=== PATIENT | male | born 1975 | race Caucasian/White ===

== ENCOUNTER 2016-05-09 12:13 | Emergency (ER) | payer SELFPAY ==
[~2016-05-09] VITALS: Ht 190.5 cm; Wt 90.0 kg
[2016-05-09 12:15] VITALS: BP 119/74; PULSE 102; RESP 15; TEMP 98; O2SAT 98
--- NOTE | 2016-05-09 14:12 | PD ---
HPI Chief Complaint: Pain: Acute or Chronic Time Seen by Provider: 14:05 Travel History International Travel<30 days: No Contact w/Intl Traveler<30days: No Traveled to known affect area: No History of Present Illness HPI 40-year-old male with a history of chronic low back pain presents to the emergency department for evaluation of right-sided lower back pain for 6 days. States that 6 days ago he bent to lift a 40 pound grill and has had pain in his right lower back since this occurred. States that the pain in his right lower back is aggravated with certain movements. Alleviated with lying still. He denies any fever, chills, nausea, vomiting, numbness or tingling, weakness, saddle anesthesia, bowel or bladder incontinence. He states that he had an L3- L4 discectomy about 5 years ago. He is concerned he may have another herniated disc. States he has been taking Tylenol and ibuprofen for his pain with minimal improvement of symptoms. He is requesting a shot of Toradol for pain. No other complaints. PFSH Past Medical History Anxiety: Yes Insomnia: Yes Kidney Stones: Yes Musculoskeletal: Yes (chronic back pain) Social History Alcohol Use: Yes ([facility]) Tobacco Use: Yes (5 cig.daily) Substance Use: No Allergies-Medications (Allergen,Severity, Reaction): Coded Allergies: Toradol (Verified Allergy, Mild, 05/09/16) PT STATES NOT ALLERGIC, SHANNON WRAY MADE AWARE Elavil (Verified Adverse Reaction, Severe, 05/09/16) Ultram (Verified Adverse Reaction, Unknown, 05/09/16) stomach ache Reported Meds & Prescriptions Reported Meds & Active Scripts Active Naproxen 500 Mg Tab 500 Mg PO BID 7 Days Flexeril (Cyclobenzaprine HCl) 10 Mg Tab 10 Mg PO TID 5 Days Review of Systems Except as stated in HPI: all other systems reviewed are Neg Physical Exam Narrative GENERAL: Well-nourished and well-developed pleasant male patient in no acute distress. SKIN: Warm and dry. HEAD: Normocephalic and atraumatic. EYES: No injection, drainage, or hyphema noted. PERRLA. EOMI. ENT: No nasal drainage noted. Oropharynx is clear. NECK: Supple and the trachea is midline. CARDIOVASCULAR: Regular rate and rhythm. RESPIRATORY: Breath sounds are equal bilaterally with no accessory muscle use, wheezing, rhonchi, or crackles. MUSCULOSKELETAL: No obvious deformities, swelling, cyanosis, or ecchymosis is present throughout the upper and lower extremities. Patient has full range of motion without any signs of neurovascular compromise. Right SLR positive. Strength 5/5 upper and lower extremities equal bilaterally. BACK: Mild tenderness to palpation over right lumbar paraspinal muscles. No obvious deformities, midline bony point tenderness, or crepitus noted throughout the thoracic and lumbar vertebrae. NEUROLOGICAL: Awake, alert, and oriented. Normal speech and gait. Ambulating without assistance. Cranial nerves are grossly intact. Data Data Last Documented VS Vital Signs Date Time Temp Pulse Resp B/P Pulse Ox O2 Delivery O2 Flow Rate FiO2 05/09/16 12:41 16 05/09/16 12:15 98.0 102 119/74 98 Orders Ketorolac Inj (Toradol Inj) (05/09/16 14:15) Acetamin-Hydrocod 325-5 Mg ([place] 5-325 (05/09/16 14:15) MDM Medical Decision Making Medical Screen Exam Complete: Yes Emergency Medical Condition: Yes Differential Diagnosis Acute on chronic back pain versus discogenic pain versus herniated disc versus sciatica Narrative Course 40-year-old male presents to the emergency department for evaluation of right- sided lower back pain after bending to orange picker a grill 6 days ago. Patient is afebrile, vital signs are stable. The patient has a history of chronic low back pain. No focal neurologic deficits or red flag signs or symptoms indicating the need for emergent imaging. I did look the patient up on he forced 4 to prescription drug monitoring program which shows that he receives a 30 day supply of Soma 350 mg and oxycodone 15 mg every month from a physician. I did confront the patient as he initially denied taking any medications other than tylenol or ibuprofen. He admits to taking these medications and states he ran out of his medication today. He is given Toradol 60 mg IM and Lortab 5325 mg. He is advised to follow-up with his PCP. Diagnosis Primary Impression: Acute exacerbation of chronic low back pain Referrals: Primary Care Physician Patient Instructions: Acute Low Back Pain (ED), General Instructions Additional Instructions: Apply ice or heat to help alleviate symptoms. Follow-up with your Primary Care Physician. Return to the ED for any acute worsening of symptoms. Med/Other Pt SpecificInfo: No Change to Meds Disposition: 01 DISCHARGE HOME Condition: Prema Hinojosa May 09, 2016 14:12 Disposition: 01 DISCHARGE HOME Condition: Prema Hinojosa May 09, 2016 14:12
[2016-05-09] MEDS ORDERED: ACETAMINOPHEN/HYDROcodone 325 MG/5 MG TAB PO ONE (14:15)
[2016-05-09] MEDS ORDERED: KETOROLAC TROMETHAMINE 60 MG/2 ML (IM) VIAL IM ONE (14:15)
[2016-05-09] MEDS ORDERED: CYCL1TAB29 PO (14:59)
[2016-05-09] MEDS ORDERED: NAPR500T PO (14:59)
[2016-10-07] MEDS ORDERED: TRAZ50TA12 PO (08:47)
== END 2016-05-09 15:35 | disposition home or self-care (01) ==
LOC: NEPB 12:13
DX: M54.5 Low back pain (principal); G89.29 Other chronic pain; F17.210 Nicotine dependence, cigarettes, uncomplicated; Z87.442 Personal history of urinary calculi; X50.0XXA Overexertion from strenuous movement or load, initial encounter; Y99.8 Other external cause status
CPT/HCPCS: 96372; 99283; J1885

== ENCOUNTER 2016-07-21 10:51 | Emergency (ER) | payer SELFPAY ==
[~2016-07-21] VITALS: Ht 190.5 cm; Wt 90.0 kg
[2016-07-21 10:52] VITALS: BP 137/87; PULSE 102; RESP 18; TEMP 98.7; O2SAT 100
--- NOTE | 2016-07-21 11:25 | PD ---
HPI Chief Complaint: Pain: Acute or Chronic Time Seen by Provider: 11:18 Travel History International Travel<30 days: No Contact w/Intl Traveler<30days: No Traveled to known affect area: No History of Present Illness HPI 40-year-old male presents to the emergency department requesting a refill on his oxycodone for chronic low back pain. He has had low back pain for approximately 3 years and has been taking oxycodone 3 times daily after having surgery approximately 3 years ago. He denies new or recent injury. His primary care provider, Dr. Will, is out of his office after having knee surgery and they provider in the office will not refill his prescription. He took his last pill yesterday. He is concerned of going through withdrawals and also needs something for his back pain. He denies encopresis, incontinence, saddle anesthesias. Denies fever, chills, nausea, vomiting. Denies paresthesias, loss of sensation, hematocrit decreased range of motion, decreased strength to bilateral lower extremities. Denies IV drug use. Denies cancer. Allergies to Elavil, Toradol, Ultram. Dr. Will's primary care provider. Has no other medical complaints. No other modifying factors or associated signs and symptoms. History Social History Alcohol Use: No Tobacco Use: Yes Allergies-Medications (Allergen,Severity, Reaction): Coded Allergies: Toradol (Verified Allergy, Mild, 07/21/16) PT STATES NOT ALLERGIC, SHANNON WRAY MADE AWARE Elavil (Verified Adverse Reaction, Severe, 07/21/16) Ultram (Verified Adverse Reaction, Unknown, 07/21/16) stomach ache Reported Meds & Prescriptions Reported Meds & Active Scripts Active No Active Prescriptions or Reported Medications Review of Systems Except as stated in HPI: all other systems reviewed are Neg Physical Exam Narrative GENERAL: Well-nourished, well-developed male patient, in no acute distress; afebrile, nontoxic-appearing SKIN: Warm and dry. HEAD: Atraumatic. Normocephalic. EYES: Pupils equal and round. No scleral icterus. No injection or drainage. ENT: Mucosa pink and moist. Airway patent. NECK: Trachea midline. CARDIOVASCULAR: Regular rate. RESPIRATORY: No accessory muscle use. GASTROINTESTINAL: Flat. MUSCULOSKELETAL: Bilateral lower extremities supple and non-tense with 2+ pedal pulses and sensory intact; with full range of motion and 5/5 strength. Active dorsiflexion and extension of bilateral feet. Bilateral straight leg raise is negative for low back pain. Ambulatory with normal gait. Sitting up in bed at 90. No obvious deformities. No clubbing. No cyanosis. No edema. BACK: No midline point tenderness on palpation of the lumbar spine. Tenderness on palpation of right paraspinal area. No obvious deformities. NEUROLOGICAL: Awake and alert. Oriented 3. No obvious cranial nerve deficits. Motor grossly within normal limits. Normal speech. Moves all extremities. 5/5 strength to all extremities. Sensory intact. PSYCHIATRIC: Appropriate mood and affect; insight and judgment normal. Data Data Last Documented VS Vital Signs Date Time Temp Pulse Resp B/P Pulse Ox O2 Delivery O2 Flow Rate FiO2 07/21/16 10:52 98.7 102 18 137/87 100 Room Air MDM Medical Screen Exam Complete: Yes Emergency Medical Condition: No Differential Diagnosis Medication refill, narcotic seeking, chronic low back pain, malingering Narrative Course 40-year-old male with chronic low back pain, requesting refill of medication on oxycodone 15 mg 3 times daily. History of surgery to the lumbar spine. Denies new or recent injury. Heart rate recheck during physical exam is approximately 90 bpm. His primary care provider, Dr. Will, is out of the office secondary to knee surgery and the current provider will not refill his prescriptions. The patient has no other medical complaints. He denies IV drug use. Denies cancer. Denies encopresis, incontinence, saddle anesthesias. I offered the patient a nonnarcotic and muscle relaxer and the patient declined. The patient was provided with information to detox center in the community. Vital signs are stable and the patient is stable for outpatient follow-up and treatment. The patient has no urgent or emergent medical complaints. There is no emergent or urgent medical need at this time. I instructed the patient to follow up with their primary care provider. A medical screening exam was performed: At the time of evaluation the presenting medical condition was determined not to be of an emergent nature. The patient was given the option of receiving additional care, but declined. Patient was given options for additional community resources from which to obtain care. The Patient Has Been advised to seek medical attention for their presenting complaint. The patient has been advised to return to the ER at any time if an emergent condition develops. Primary Impression: Encounter for medical screening examination Scripts No Active Prescriptions or Reported Meds Disposition: 01 DISCHARGE HOME Condition: Stable Prema Camacho Jul 21, 2016 11:25
[2016-10-07] MEDS ORDERED: TRAZ50TA12 PO (08:47)
== END 2016-07-21 12:15 | disposition left against medical advice (07) ==
LOC: NEPB 10:51
DX: M54.5 Low back pain (principal); Z72.0 Tobacco use; Z98.890 Other specified postprocedural states
CPT/HCPCS: 99281

== ENCOUNTER 2016-08-13 17:30 | Emergency (ER) | payer OTHER ==
[~2016-08-13] VITALS: Ht 190.5 cm; Wt 85.0 kg
[2016-08-13 17:34] VITALS: BP 126/84; PULSE 103; RESP 16; TEMP 98.2; O2SAT 96
[2016-08-13] MEDS ORDERED: SODIUM CHLOR 0.9% 1000 ML INJ 1,000 ML IV ONE (17:46)
[2016-08-13] MEDS ORDERED: SODIUM CHLORIDE 0.9% FLUSH 10 ML FLUSH IVF PRN (18:00)
[2016-08-13 18:09] LABS: BASOPHIL % 0.2 % (0.0-2.0); EOSINOPHIL % 0.4 % (0.0-4.0); HEMATOCRIT 42.6 % (39.0-51.0); HEMO FLAGS DIFF FINAL; LYMPH % 18.5 % (9.0-44.0); LYMPHOCYTE # 1.9 TH/MM3 (1.0-4.8); MEAN CORPUSCULAR HEMOGLOBIN 32.1 PG (27.0-34.0); MEAN CORPUSCULAR HGB CONC 33.1 % (32.0-36.0); MONO % 2.5 % (0.0-8.0); NEUT % 78.4 % (16.0-70.0); PLATELET COUNT 202 TH/MM3 (150-450); RED CELL DISTRIBUTION WIDTH 13.9 % (11.6-17.2); WHITE BLOOD COUNT 10.2 TH/MM3 (4.0-11.0)
[2016-08-13 18:18] LABS: APTT (PATIENT) 21.7 SEC (24.3-30.1); PROTHROMBIN TIME - PATIENT 11.1 SEC (9.8-11.6)
[2016-08-13 18:22] VITALS: RESP 18; O2SAT 98
--- NOTE | 2016-08-13 18:33 | RADRPT ---
EXAM DATE/TIME: 08/13/2016 18:20 [facility] COMPARISON: CHEST SINGLE AP, February 16, 2015, 16:49. INDICATIONS : Patient states syncope. MEDICAL HISTORY : None. SURGICAL HISTORY : None. ENCOUNTER: Initial ACUITY: 1 day PAIN SCORE: 0/10 LOCATION: Bilateral chest FINDINGS: A single view of the chest demonstrates the lungs to be symmetrically aerated without evidence of mas s, infiltrate or effusion. The cardiomediastinal contours are unremarkable. Osseous structures are intact. CONCLUSION: No acute disease. Sylvester Azul MD on August 13, 2016 at 18:31 Board Certified Radiologist. This report was verified electronically.
--- NOTE | 2016-08-13 18:48 | PD ---
HPI Chief Complaint: Alcohol/Drug Intoxication Time Seen by Provider: 17:46 Travel History International Travel<30 days: No Contact w/Intl Traveler<30days: No Traveled to known affect area: No History of Present Illness HPI 40 y/o male presents after getting 1 mg of Narcan and going from a GCS of 3 to 15. Patient will not tell me what he took but denies any complaints. He has history of overdose in the past. He was last seen normal at 2 PM. He presents by ambulance. History is significantly limited. PFSH Past Medical History Narrative Medical On review of records Anxiety: Yes Insomnia: Yes Kidney Stones: Yes Musculoskeletal: Yes (chronic back pain) Psychiatric: Yes (HX OF SUICIDE) Past Surgical History Narrative Surgical Patient denies but poor historian Social History Alcohol Use: No Tobacco Use: Yes (1/2 PACK per records) Substance Use: No (DENIES ANY USE, prior Xanax overdose in records) Allergies-Medications (Allergen,Severity, Reaction): Coded Allergies: Toradol (Verified Allergy, Mild, 07/21/16) PT STATES NOT ALLERGIC, SHANNON WRAY MADE AWARE Elavil (Verified Adverse Reaction, Severe, 07/21/16) Ultram (Verified Adverse Reaction, Unknown, 07/21/16) stomach ache Reported Meds & Prescriptions Reported Meds & Active Scripts Active No Active Prescriptions or Reported Medications Review of Systems ROS Limitations: Poor Historian Except as stated in HPI: all other systems reviewed are Neg Physical Exam Narrative GENERAL: Well-nourished, well-developed patient. SKIN: Warm and dry. HEAD: Normocephalic and atraumatic. EYES: No injection or drainage. Pupils pinpoint ENT: No nasal drainage noted. NECK: Supple, trachea midline. CARDIOVASCULAR: Regular rate and rhythm RESPIRATORY: No increased effort. No accessory muscle use. GASTROINTESTINAL: Abdomen soft, non-tender, nondistended. NEUROLOGICAL: Awake. Moves all extremities. Normal speech. Data Data Last Documented VS Vital Signs Date Time Temp Pulse Resp B/P Pulse Ox O2 Delivery O2 Flow Rate FiO2 08/13/16 18:22 18 98 08/13/16 17:40 102 Room Air 08/13/16 17:34 98.2 126/84 Orders Electrocardiogram (08/13/16 ) Complete Blood Count With Diff (08/13/16 17:46) Comprehensive Metabolic Panel (08/13/16 17:46) Prothrombin Time / Inr (Pt) (08/13/16 17:46) Act Partial Throm Time (Ptt) (08/13/16 17:46) Chest, Single Ap (08/13/16 17:46) Blood Glucose (08/13/16 17:46) Iv Access Insert/Monitor (08/13/16 17:46) Ecg Monitoring (08/13/16 17:46) Oximetry (08/13/16 17:46) Sodium Chloride 0.9% Flush (Ns Flush) (08/13/16 18:00) Sodium Chlor 0.9% 1000 Ml Inj (Ns 1000 M (08/13/16 17:46) Drug Screen, Random Urine (08/13/16 17:46) Alcohol (Ethanol) (08/13/16 17:46) Salicylates (Aspirin) (08/13/16 17:46) Tylenol (Acetaminophen) (08/13/16 17:46) Ct Brain W/O Iv Contrast(Rout) (08/13/16 ) Labs Laboratory Tests Test 08/13/16 17:55 White Blood Count 10.2 TH/MM3 Red Blood Count 4.40 MIL/MM3 Hemoglobin 14.1 GM/DL Hematocrit 42.6 % Mean Corpuscular Volume 97.0 FL Mean Corpuscular Hemoglobin 32.1 PG Mean Corpuscular Hemoglobin 33.1 % Concent Red Cell Distribution Width 13.9 % Platelet Count 202 TH/MM3 Mean Platelet Volume 9.9 FL Neutrophils (%) (Auto) 78.4 % Lymphocytes (%) (Auto) 18.5 % Monocytes (%) (Auto) 2.5 % Eosinophils (%) (Auto) 0.4 % Basophils (%) (Auto) 0.2 % Neutrophils # (Auto) 8.0 TH/MM3 Lymphocytes # (Auto) 1.9 TH/MM3 Monocytes # (Auto) 0.3 TH/MM3 Eosinophils # (Auto) 0.0 TH/MM3 Basophils # (Auto) 0.0 TH/MM3 CBC Comment DIFF FINAL Differential Comment Prothrombin Time 11.1 SEC Prothromb Time International 1.0 RATIO Ratio Activated Partial 21.7 SEC Thromboplast Time Salicylates Level LESS THAN 1.7 MG/DL MDM Medical Decision Making Medical Screen Exam Complete: Yes Emergency Medical Condition: Yes Medical Record Reviewed: Yes (past history confirm) Differential Diagnosis Overdose, congestion, renal failure, intracranial Narrative Course Will check blood work and he will need to be monitored in the hospital given significant initial GCS needing Narcan, chaim act placed Physician Communication Physician Communication dr pryor to reeval and admit Scripts No Active Prescriptions or Reported Meds Arely Vogel MD Aug 13, 2016 18:47
[2016-08-13 19:00] VITALS: BP 129/78; PULSE 101; RESP 18; O2SAT 96
--- NOTE | 2016-08-13 19:00 | PD ---
Physical Exam Date Seen by Provider: Aug 13, 2016 Time Seen by Provider: 18:59 Narrative The patient is a 40-year-old male was initially evaluated by the previous physician, Dr. Vogel. Please refer to the initial history, physical, diagnostic evaluation, and treatment modality plan. The patient signed out at [address] of the brain and laboratory evaluation pending. Data Data Last Documented VS Vital Signs Date Time Temp Pulse Resp B/P Pulse Ox O2 Delivery O2 Flow Rate FiO2 08/13/16 18:22 18 98 08/13/16 17:40 102 Room Air 08/13/16 17:34 98.2 126/84 Orders Electrocardiogram (08/13/16 ) Complete Blood Count With Diff (08/13/16 17:46) Comprehensive Metabolic Panel (08/13/16 17:46) Prothrombin Time / Inr (Pt) (08/13/16 17:46) Act Partial Throm Time (Ptt) (08/13/16 17:46) Chest, Single Ap (08/13/16 17:46) Blood Glucose (08/13/16 17:46) Iv Access Insert/Monitor (08/13/16 17:46) Ecg Monitoring (08/13/16 17:46) Oximetry (08/13/16 17:46) Sodium Chloride 0.9% Flush (Ns Flush) (08/13/16 18:00) Sodium Chlor 0.9% 1000 Ml Inj (Ns 1000 M (08/13/16 17:46) Drug Screen, Random Urine (08/13/16 17:46) Alcohol (Ethanol) (08/13/16 17:46) Salicylates (Aspirin) (08/13/16 17:46) Tylenol (Acetaminophen) (08/13/16 17:46) Ct Brain W/O Iv Contrast(Rout) (08/13/16 ) Ondansetron Inj (Zofran Inj) (08/13/16 20:45) Labs Laboratory Tests Test 08/13/16 08/13/16 17:55 18:57 White Blood Count 10.2 TH/MM3 Red Blood Count 4.40 MIL/MM3 Hemoglobin 14.1 GM/DL Hematocrit 42.6 % Mean Corpuscular Volume 97.0 FL Mean Corpuscular Hemoglobin 32.1 PG Mean Corpuscular Hemoglobin 33.1 % Concent Red Cell Distribution Width 13.9 % Platelet Count 202 TH/MM3 Mean Platelet Volume 9.9 FL Neutrophils (%) (Auto) 78.4 % Lymphocytes (%) (Auto) 18.5 % Monocytes (%) (Auto) 2.5 % Eosinophils (%) (Auto) 0.4 % Basophils (%) (Auto) 0.2 % Neutrophils # (Auto) 8.0 TH/MM3 Lymphocytes # (Auto) 1.9 TH/MM3 Monocytes # (Auto) 0.3 TH/MM3 Eosinophils # (Auto) 0.0 TH/MM3 Basophils # (Auto) 0.0 TH/MM3 CBC Comment DIFF FINAL Differential Comment Prothrombin Time 11.1 SEC Prothromb Time International 1.0 RATIO Ratio Activated Partial 21.7 SEC Thromboplast Time Salicylates Level LESS THAN 1.7 MG/DL Sodium Level 144 MEQ/L Potassium Level 3.9 MEQ/L Chloride Level 111 MEQ/L Carbon Dioxide Level 20.7 MEQ/L Anion Gap 12 MEQ/L Blood Urea Nitrogen 8 MG/DL Creatinine 1.23 MG/DL Estimat Glomerular Filtration 65 ML/MIN Rate Random Glucose 126 MG/DL Calcium Level 7.6 MG/DL Total Bilirubin 0.2 MG/DL Aspartate Amino Transf 25 U/L (AST/SGOT) Alanine Aminotransferase 33 U/L (ALT/SGPT) Alkaline Phosphatase 69 U/L Total Protein 6.8 GM/DL Albumin 3.6 GM/DL Urine Opiates Screen NEG Acetaminophen Level LESS THAN 2.0 MCG/ML Urine Barbiturates Screen NEG Urine Amphetamines Screen NEG Urine Benzodiazepines Screen NEG Urine Cocaine Screen POS Urine Cannabinoids Screen NEG Ethyl Alcohol Level 40 MG/DL [facility] Medical Record Reviewed: Yes Supervised Visit with LEAHTA: No Interpretation(s) Last Impressions Chest X-Ray 08/13/16 [id number] Signed Impressions: Service Date/Time: Saturday, August 13, 2016 18:20 - CONCLUSION: No acute disease. Sylvester Azul MD Laboratory Tests Test 08/13/16 08/13/16 17:55 18:57 White Blood Count 10.2 TH/MM3 Red Blood Count 4.40 MIL/MM3 Hemoglobin 14.1 GM/DL Hematocrit 42.6 % Mean Corpuscular Volume 97.0 FL Mean Corpuscular Hemoglobin 32.1 PG Mean Corpuscular Hemoglobin 33.1 % Concent Red Cell Distribution Width 13.9 % Platelet Count 202 TH/MM3 Mean Platelet Volume 9.9 FL Neutrophils (%) (Auto) 78.4 % Lymphocytes (%) (Auto) 18.5 % Monocytes (%) (Auto) 2.5 % Eosinophils (%) (Auto) 0.4 % Basophils (%) (Auto) 0.2 % Neutrophils # (Auto) 8.0 TH/MM3 Lymphocytes # (Auto) 1.9 TH/MM3 Monocytes # (Auto) 0.3 TH/MM3 Eosinophils # (Auto) 0.0 TH/MM3 Basophils # (Auto) 0.0 TH/MM3 CBC Comment DIFF FINAL Differential Comment Prothrombin Time 11.1 SEC Prothromb Time International 1.0 RATIO Ratio Activated Partial 21.7 SEC Thromboplast Time Salicylates Level LESS THAN 1.7 MG/DL Sodium Level 144 MEQ/L Potassium Level 3.9 MEQ/L Chloride Level 111 MEQ/L Carbon Dioxide Level 20.7 MEQ/L Anion Gap 12 MEQ/L Blood Urea Nitrogen 8 MG/DL Creatinine 1.23 MG/DL Estimat Glomerular Filtration 65 ML/MIN Rate Random Glucose 126 MG/DL Calcium Level 7.6 MG/DL Total Bilirubin 0.2 MG/DL Aspartate Amino Transf 25 U/L (AST/SGOT) Alanine Aminotransferase 33 U/L (ALT/SGPT) Alkaline Phosphatase 69 U/L Total Protein 6.8 GM/DL Albumin 3.6 GM/DL Urine Opiates Screen NEG Acetaminophen Level LESS THAN 2.0 MCG/ML Urine Barbiturates Screen NEG Urine Amphetamines Screen NEG Urine Benzodiazepines Screen NEG Urine Cocaine Screen POS Urine Cannabinoids Screen NEG Ethyl Alcohol Level 40 MG/DL Differential Diagnosis Differential diagnosis includes alcohol intoxication, substance ingestion, opiate overdose, suicidal ideation, medication overdose, depressive disorder NOS , mood disorder NOS. Narrative Course The patient was initially evaluated by the previous physician, please refer to the initial history, physical, diagnostic evaluation, and treatment modality plan. The patient was signed out at 7 PM laboratory evaluation and CT of the brain pending. The patient's initial GCS was apparently 3, the patient received Narcan and responded, is currently GCS of 15. However, according to previous physician, the patient will not give a good history of regard to events prior to arriving to the hospital. Alcohol level was 40, tox screen is positive for cocaine. CT the brain is negative. At 8 PM the patient was awake , alert, and able to drink water. The patient will be monitored until midnight , if remains GCS of 15, will be cleared to be evaluated by psychiatry as the previous physician placed the patient under a Rubin act. The patient was reevaluated several times, he was able to drink Gatorade without difficulty, had one episode of nausea which resolved after Zofran. Patient was reevaluated once again at 11:45 PM, he is awake, alert, and oriented 4. The patient states he took 2 oxycodone earlier today with 2 rum and cokes and think it was more than he can handle. The patient does have a history of oxycodone use in the past, but has not been on oxycodone for several years. He does have a history of previous intentional overdose on Xanax several years ago, but denies any current suicidal or homicidal ideation. He denies the ingestion of any medications in an attempt to harm himself. The patient was placed under Rubin act by the previous physician, is medically cleared to be evaluated by psychiatry. Psychiatry list Rubin act, the patient will be discharged home. Diagnosis Primary Impression: Ingestion of substance Qualified Code: T65.94XA - Ingestion of substance, undetermined intent, initial encounter Scripts No Active Prescriptions or Reported Meds Condition: Edinson Sadler MD Aug 13, 2016 19:00
[2016-08-13 19:19] LABS: AMPHETAMINE, URINE NEG (NEG); BARBITURATES, URINE NEG (NEG); COCAINE, URINE POS (NEG)
--- NOTE | 2016-08-13 20:03 | RADRPT ---
EXAM DATE/TIME: 08/13/2016 19:46 [facility] COMPARISON: CT BRAIN W/O CONTRAST, February 16, 2015, 16:20. INDICATIONS : Altered mental status. RADIATION DOSE: 38.81 CTDIvol (mGy) MEDICAL HISTORY : None SURGICAL HISTORY : None. ENCOUNTER: Initial ACUITY: 1 day PAIN SCALE: 0/10 LOCATION: cranial TECHNIQUE: Multiple contiguous axial images were obtained of the head. Using automated exposure control and adj ustment of the mA and/or kV according to patient size, radiation dose was kept as low as reasonably a chievable to obtain optimal diagnostic quality images. FINDINGS: CEREBRUM: The ventricles are normal for age. No evidence of midline shift, mass lesion, hemorrhage or acute in farction. No extra-axial fluid collections are seen. POSTERIOR FOSSA: The cerebellum and brainstem are intact. The 4th ventricle is midline. The cerebellopontine angle i s unremarkable. EXTRACRANIAL: The visualized portion of the orbits is intact. Scattered sinus disease. SKULL: The calvaria is intact. No evidence of skull fracture. CONCLUSION: No acute intracranial disease. Sylvester Azul MD on August 13, 2016 at 20:01 Board Certified Radiologist. This report was verified electronically.
[2016-08-13 20:04] LABS: ACETAMINOPHEN LESS THAN 2.0 MCG/ML (10.0-30.0); ALKALINE PHOSPHATASE 69 U/L (45-117); ALT (GPT) 33 U/L (12-78); ANION GAP 12 MEQ/L (5-15); AST (GOT) 25 U/L (15-37); BICARBONATE 20.7 MEQ/L (21.0-32.0); BLOOD UREA NITROGEN 8 MG/DL (7-18); CHLORIDE 111 MEQ/L (98-107); GLOMERULAR FILTRATION RATE 65 ML/MIN (>89); POTASSIUM 3.9 MEQ/L (3.5-5.1); SODIUM (NA) 144 MEQ/L (136-145); TOTAL BILIRUBIN ADULT 0.2 MG/DL (0.2-1.0)
[2016-08-13] MEDS ORDERED: ONDANSETRON HCL 4 MG/2 ML VIAL IV PUSH ONE (20:45)
[2016-08-13 23:00] VITALS: BP 120/72; PULSE 80; RESP 18; O2SAT 95
[2016-08-14] MEDS ORDERED: diphenhydrAMINE HCL 25 MG CAP PO ONE (00:30)
[2016-08-14 02:25] VITALS: BP 110/64; PULSE 70; RESP 18; O2SAT 97
[2016-08-14 06:41] VITALS: BP 127/72; PULSE 72; RESP 18; O2SAT 99
--- NOTE | 2016-08-14 08:38 | PD ---
History of Present Illness Chief Complaint: Alcohol/Drug Intoxication Time Seen by Provider: 08:30 Travel History International Travel<30 Days: No Contact w/Intl Traveler<30days: No Known affected area: No Legal Status Legal Status: Rubin Act Rubin Act Signed By: DR TENA History of Present Illness: History of Present Illness HPI 40 y/o male with no psychiatric history who presents after getting 1 mg of Narcan and going from a GCS of 3 to 15. He reports that he was with his father and had some drinks. Later on in the day he hurt his back and took # 2 tabs of oxycodone that he has prescribed for back pain but that he has not taken in some time. He denies that this was an intentional overdose. States " I didn't attempt suicide". Patient denies any previous psychiatric history and deneis any current psychiatric treatment. No previous attempts. EMR is reviewed. One previous Ed visit for suspected malingering to obtain narcotics. Current toxicology is positive for cocaine. Patient has been monitored in J pod. no behavioral concerns. this morning he is alert, oriented, engaging and calm. His speech is clear and logical. No psychosis and no malik. He denies any symptoms of depression or anxiety. Affect is appropriate and full range. Patient denies that this was an intentional overdose. he states that he is in school and graduates in 3 weeks and has no reason to not want to live. TC to father at [phone] for collateral information. he does not have any concerns regarding his son if he were to be discharged. He will pick him up from the hospital. [facility] Past Medical History Anxiety: Yes Insomnia: Yes Kidney Stones: Yes Musculoskeletal: Yes (chronic back pain) Psychiatric: Yes (HX OF SUICIDE) Psychiatric History Psychiatric History Hx Psychiatric Treatment: Deneis any History of Inpatient Treatment: No Guns or firearms in home: No Social History Single male. Lives with his father. Attends [employer] and will graduate in 3 weeks. Hx Alcohol Use: No Hx Tobacco Use: Yes (1/2 PACK per records) Hx Substance Use: No (DENIES ANY USE, prior Xanax overdose in records) Substance Use Type: Alcohol, Cocaine Hx of Substance Use Treatment: No Family Psychiatric History None reported Allergies-Medications (Allergen,Severity, Reaction): Coded Allergies: Toradol (Verified Allergy, Mild, 07/21/16) PT STATES NOT ALLERGIC, SHANNON WRAY MADE AWARE Elavil (Verified Adverse Reaction, Severe, 07/21/16) Ultram (Verified Adverse Reaction, Unknown, 07/21/16) stomach ache Reported Meds & Prescriptions Reported Meds & Active Scripts Active No Active Prescriptions or Reported Medications Review of Systems Constitutional: DENIES: Diaphoretic episodes, Fatigue, Fever, Weight gain, Weight loss, Chills, Dizziness, Change in appetite, Night Sweats Endocrine: DENIES: Heat/cold intolerance, Polydipsia, Polyuria, Polyphagia Eyes: DENIES: Blurred vision, Diplopia, Eye inflammation, Eye pain, Vision loss , Photosensitivity, Double Vision Ears, nose, mouth, throat: DENIES: Tinnitus, Hearing loss, Vertigo, Nasal discharge, Oral lesions, Throat pain, Hoarseness, Ear Pain, Running Nose, Epistaxis, Sinus Pain, Toothache, Odynophagia Respiratory: DENIES: Apneas, Cough, Snoring, Wheezing, Hemoptysis, Sputum production, Shortness of breath Cardiovascular: DENIES: Chest pain, Palpitations, Syncope, Dyspnea on Exertion , PND, Lower Extremity Edema, Orthopnea, Claudication Gastrointestinal: DENIES: Abdominal pain, Black stools, Bloody stools, Constipation, Diarrhea, Nausea, Vomiting, Difficulty Swallowing, Anorexia Genitourinary: DENIES: Sexual dysfunction, Urinary frequency, Urinary incontinence, Urgency, Hematuria, Dysuria, Nocturia, Penile Discharge, Testicular Pain, Testicular Swelling Musculoskeletal: COMPLAINS OF: Back pain (reports hx of herniated discs) Integumentary: DENIES: Abnormal pigmentation, Nail changes, Pruritus, Rash Hematologic/lymphatic: DENIES: Bruising, Lymphadenopathy Immunologic/allergic: DENIES: Eczema, Urticaria Neurologic: DENIES: Abnormal gait, Headache, Localized weakness, Paresthesias, Seizures, Speech Problems, Tremor, Poor Balance Psychiatric: DENIES: Anxiety, Confusion, Mood changes, Depression, Hallucinations, Agitation, Suicidal Ideation, Homicidal Ideation, Delusions Exam Alert: Yes [place]: Person (ox4) Mood: Calm Affect: Appropriate Speech: Clear, Logical Eye Contact: Normal Memory Intact: Comment (no impairmetn) Hallucinations: Other (neagtive) Delusions: No Suicidal: Ideation (deneis any) Homicidal: Ideation (deneis any) Insight/Judgement Fair. Not impaired. MDM Medical Decision Making Medical Record Reviewed: Yes Assessment/Plan 40 year old male with no previous psychiatric history who was brought in after he was found unresponsive. It is reported that he took oxycodone after he had a few drinks. the patient denies that this was an intentional overdoes and he denies any suicidal ideation, intent or plan. The patient is future oriented and presents with adequate protective factors. His father presented no concerns for his safety if he were to be discharged. At this time he does not meet BA criteria and will be discharged. Psychoeducation provided. Orders Electrocardiogram (08/13/16 ) Complete Blood Count With Diff (08/13/16 17:46) Comprehensive Metabolic Panel (08/13/16 17:46) Prothrombin Time / Inr (Pt) (08/13/16 17:46) Act Partial Throm Time (Ptt) (08/13/16 17:46) Chest, Single Ap (08/13/16 17:46) Blood Glucose (08/13/16 17:46) Iv Access Insert/Monitor (08/13/16 17:46) Ecg Monitoring (08/13/16 17:46) Oximetry (08/13/16 17:46) Sodium Chloride 0.9% Flush (Ns Flush) (08/13/16 18:00) Sodium Chlor 0.9% 1000 Ml Inj (Ns 1000 M (08/13/16 17:46) Drug Screen, Random Urine (08/13/16 17:46) Alcohol (Ethanol) (08/13/16 17:46) Salicylates (Aspirin) (08/13/16 17:46) Tylenol (Acetaminophen) (08/13/16 17:46) Ct Brain W/O Iv Contrast(Rout) (08/13/16 ) Ondansetron Inj (Zofran Inj) (08/13/16 20:45) Diphenhydramine (Benadryl) (08/14/16 00:30) Psych Screen (08/14/16 02:45) Diet Regular Basic (08/14/16 Breakfast) Results Vital Signs Date Time Temp Pulse Resp B/P Pulse Ox O2 Delivery O2 Flow Rate FiO2 08/14/16 06:41 72 18 127/72 99 08/14/16 02:25 70 18 110/64 97 Room Air 08/13/16 23:00 80 18 120/72 95 Room Air 08/13/16 19:00 101 18 129/78 96 Room Air 08/13/16 18:22 18 98 08/13/16 17:40 102 18 96 Room Air 08/13/16 17:34 98.2 103 16 126/84 96 Laboratory Tests Test 08/13/16 08/13/16 17:55 18:57 White Blood Count 10.2 Red Blood Count 4.40 Hemoglobin 14.1 Hematocrit 42.6 Mean Corpuscular Volume 97.0 Mean Corpuscular Hemoglobin 32.1 Mean Corpuscular Hemoglobin 33.1 Concent Red Cell Distribution Width 13.9 Platelet Count 202 Mean Platelet Volume 9.9 Neutrophils (%) (Auto) 78.4 Lymphocytes (%) (Auto) 18.5 Monocytes (%) (Auto) 2.5 Eosinophils (%) (Auto) 0.4 Basophils (%) (Auto) 0.2 Neutrophils # (Auto) 8.0 Lymphocytes # (Auto) 1.9 Monocytes # (Auto) 0.3 Eosinophils # (Auto) 0.0 Basophils # (Auto) 0.0 CBC Comment DIFF FINAL Differential Comment Prothrombin Time 11.1 Prothromb Time International 1.0 Ratio Activated Partial 21.7 Thromboplast Time Salicylates Level LESS THAN 1.7 Sodium Level 144 Potassium Level 3.9 Chloride Level 111 Carbon Dioxide Level 20.7 Anion Gap 12 Blood Urea Nitrogen 8 Creatinine 1.23 Estimat Glomerular Filtration 65 Rate Random Glucose 126 Calcium Level 7.6 Total Bilirubin 0.2 Aspartate Amino Transf 25 (AST/SGOT) Alanine Aminotransferase 33 (ALT/SGPT) Alkaline Phosphatase 69 Total Protein 6.8 Albumin 3.6 Urine Opiates Screen NEG Acetaminophen Level LESS THAN 2.0 Urine Barbiturates Screen NEG Urine Amphetamines Screen NEG Urine Benzodiazepines Screen NEG Urine Cocaine Screen POS Urine Cannabinoids Screen NEG Ethyl Alcohol Level 40 Diagnosis Primary Impression: Ingestion of substance Additional Impression: Substance use disorder Psychiatrically Cleared: Yes Med/ Other Pt Specific Info: No Meds Exist/No RX given Prescriptions No Active Prescriptions or Reported Meds Disposition: 01 DISCHARGE HOME Condition: Stable Problem Qualifiers Primary Impression: Ingestion of substance Qualified Code: T65.91XA - Ingestion of substance, accidental or unintentional , initial encounter Traci Denis Aug 14, 2016 08:38
--- NOTE | 2016-08-14 13:41 | EKG ---
Date Performed: 08/13/2016 Time Performed: 17:41:27 PTAGE: 40 years EKG: Sinus rhythm POSSIBLE RIGHT VENTRICULAR CONDUCTION DELAY NONSPECIFIC T-WAVE ABNORMALITY BORDERLINE ECG Compared t o prior tracing no significant change PREVIOUS TRACING : 02/16/2015 15.35 DOCTOR: Gene Conrad Interpretating Date/Time 08/14/2016 13:36:33
[2016-10-07] MEDS ORDERED: TRAZ50TA12 PO (08:47)
== END 2016-08-14 09:37 | disposition home or self-care (01) ==
LOC: NEPC 17:30 → NEPJ 08-14 09:37
DX: T65.94XA Toxic effect of unspecified substance, undetermined, initial encounter (principal); F14.10 Cocaine abuse, uncomplicated; R94.31 Abnormal electrocardiogram [ECG] [EKG]
CPT/HCPCS: 70450; 71010; 80053; 80307; 85025; 85610; 85730; 93005; 96361; 96374; 99285; J2405; J7030

== ENCOUNTER → 2016-10-01 | Outpatient (CLI) | payer OTHER ==
[~2016-10-01] MED LIST: TRAZ50TA12 PO
[2016-10-01 11:35] LABS: ANION GAP 10 MEQ/L (5-15); AST (GOT) 17 U/L (15-37); BICARBONATE 22.3 MEQ/L (21.0-32.0); BLOOD UREA NITROGEN 17 MG/DL (7-18); CHLORIDE 108 MEQ/L (98-107); GLOMERULAR FILTRATION RATE 82 ML/MIN (>89); GLUCOSE,FASTING 108 MG/DL (74-99); POTASSIUM 3.8 MEQ/L (3.5-5.1); SODIUM (NA) 140 MEQ/L (136-145)
[2016-10-01 11:39] LABS: ALKALINE PHOSPHATASE 92 U/L (45-117); ALT (GPT) 35 U/L (12-78); TOTAL BILIRUBIN ADULT 1.4 MG/DL (0.2-1.0)
[2016-10-01 11:48] LABS: FREE T4 0.86 NG/DL (0.76-1.46)
== END ==
LOC: CLAB 10:46
PROVIDERS: ATTEND Nurse Practitioner Family
DX: G47.00 Insomnia, unspecified (principal)
CPT/HCPCS: 36415; 80053; 84439; 84443

== ENCOUNTER → 2016-10-22 | Outpatient (CLI) | payer OTHER | LOC: CLAB 12:39 | PROVIDERS: ATTEND Nurse Practitioner Family | DX: N50.89 Other specified disorders of the male genital organs (principal) | CPT/HCPCS: 36415; 86592 ==

== ENCOUNTER 2017-01-10 18:45 | Emergency (ER) | payer OTHER ==
[~2017-01-10] VITALS: Ht 190.5 cm; Wt 87.0 kg
[2017-01-10] MEDS ORDERED: SODIUM CHLOR 0.9% 1000 ML INJ 1,000 ML IV SCH (19:12)
[2017-01-10] MEDS ORDERED: SODIUM CHLORIDE 0.9% FLUSH 10 ML FLUSH IVF PRN (19:15)
[2017-01-10] MEDS ORDERED: PANTOPRAZOLE SODIUM 40 MG VIAL IVP ONE (19:15)
[2017-01-10 19:41] LABS: AUTOMATED NEUTROPHIL # 5.6 TH/MM3 (1.8-7.7); BASOPHIL # 0.1 TH/MM3 (0-0.2); BASOPHIL % 0.6 % (0.0-2.0); EOSINOPHIL # 0.5 TH/MM3 (0-0.4); EOSINOPHIL % 4.9 % (0.0-4.0); HEMATOCRIT 47.4 % (39.0-51.0); HEMO FLAGS DIFF FINAL; LYMPH % 28.2 % (9.0-44.0); LYMPHOCYTE # 2.6 TH/MM3 (1.0-4.8); MEAN CORPUSCULAR HEMOGLOBIN 32.4 PG (27.0-34.0); MEAN CORPUSCULAR HGB CONC 33.7 % (32.0-36.0); MONO % 5.7 % (0.0-8.0); NEUT % 60.6 % (16.0-70.0); PLATELET COUNT 214 TH/MM3 (150-450); RED BLOOD COUNT 4.94 MIL/MM3 (4.50-5.90); RED CELL DISTRIBUTION WIDTH 13.5 % (11.6-17.2); WHITE BLOOD COUNT 9.3 TH/MM3 (4.0-11.0)
--- NOTE | 2017-01-10 19:54 | PD ---
HPI Chief Complaint: OD/ Ingestion Time Seen by Provider: 19:06 Travel History International Travel<30 days: No Contact w/Intl Traveler<30days: No Traveled to known affect area: No History of Present Illness HPI Patient is a 41-year-old male who presents to emergency room with his father for evaluation of suicidal ideation as he does of chronic pain.. Patient reports that he is very depressed, reports that he has history of depression, anxiety, OCD, patient reports that around 1 PM this afternoon he ingested about 350-400 tablets of Advil which were 200 mg in attempt to commit suicide. Patient reports that when his father returned home, he admitted to overdosing on his medications. Patient at this time complains of generalized weakness, lightheadedness. PFSH Past Medical History Anxiety: Yes Insomnia: Yes Kidney Stones: Yes Musculoskeletal: Yes (chronic back pain) Psychiatric: Yes (HX OF SUICIDE) Social History Alcohol Use: No Tobacco Use: Yes (1/2 PACK per records) Substance Use: No (DENIES ANY USE, prior Xanax overdose in records) Allergies-Medications (Allergen,Severity, Reaction): Coded Allergies: ketorolac (Unverified Allergy, Mild, 12/07/16) PT STATES NOT ALLERGIC, SHANNON WRAY MADE AWARE amitriptyline (Unverified Adverse Reaction, Severe, 12/07/16) tramadol (Unverified Adverse Reaction, Unknown, 12/07/16) stomach ache Reported Meds & Prescriptions Reported Meds & Active Scripts Active Trazodone (Trazodone HCl) 50 Mg Tab 50 Mg PO HS Review of Systems General / Constitutional: No: Fever Eyes: No: Visual changes HENT: No: Headaches Cardiovascular: No: Chest Pain or Discomfort Respiratory: No: Shortness of Breath Gastrointestinal: No: Abdominal Pain Genitourinary: No: Dysuria Musculoskeletal: No: Pain Skin: No Rash Neurologic: No: Weakness Psychiatric: Positive: Anxiety, Depression, Suicidal Ideations, No: Homicidal Ideation Endocrine: No: Polydipsia Hematologic/Lymphatic: No: Easy Bruising Physical Exam Narrative GENERAL: Moderate distress SKIN: Focused skin assessment warm/dry. HEAD: Atraumatic. Normocephalic. EYES: Pupils equal and round. No scleral icterus. No injection or drainage. ENT: No nasal bleeding or discharge. Mucous membranes pink and moist. NECK: Trachea midline. No JVD. CARDIOVASCULAR: Regular rate and rhythm. No murmur appreciated. RESPIRATORY: No accessory muscle use. Clear to auscultation. Breath sounds equal bilaterally. GASTROINTESTINAL: Abdomen soft, non-tender, nondistended. Hepatic and splenic margins not palpable. MUSCULOSKELETAL: No obvious deformities. No clubbing. No cyanosis. No edema. NEUROLOGICAL: Awake and alert. No obvious cranial nerve deficits. Motor grossly within normal limits. Normal speech. PSYCHIATRIC: Depressed with suicidal ideations Data Data Last Documented VS Vital Signs Date Time Temp Pulse Resp B/P (MAP) Pulse Ox O2 Delivery O2 Flow Rate FiO2 01/10/17 20:54 77 18 125/70 (88) 100 Room Air Orders Orders Complete Blood Count With Diff (01/10/17 19:12) Comprehensive Metabolic Panel (01/10/17 19:12) Electrocardiogram (01/10/17 19:12) Iv Access Insert/Monitor (01/10/17 19:12) Ecg Monitoring (01/10/17 19:12) Psych Screen (01/10/17 19:12) Sodium Chloride 0.9% Flush (Ns Flush) (01/10/17 19:15) Drug Screen, Random Urine (01/10/17 19:12) Alcohol (Ethanol) (01/10/17 19:12) Salicylates (Aspirin) (01/10/17 19:12) Tylenol (Acetaminophen) (01/10/17 19:12) Pantoprazole Inj (Protonix Inj) (01/10/17 19:15) Sodium Chlor 0.9% 1000 Ml Inj (Ns 1000 M (01/10/17 19:12) Basic Metabolic Panel (Bmp) (01/10/17 23:28) Labs Laboratory Tests Test 01/10/17 19:26 01/10/17 23:40 01/11/17 00:11 White Blood Count 9.3 TH/MM3 Red Blood Count 4.94 MIL/MM3 Hemoglobin 16.0 GM/DL Hematocrit 47.4 % Mean Corpuscular Volume 96.0 FL Mean Corpuscular Hemoglobin 32.4 PG Mean Corpuscular Hemoglobin Concent 33.7 % Red Cell Distribution Width 13.5 % Platelet Count 214 TH/MM3 Mean Platelet Volume 9.1 FL Neutrophils (%) (Auto) 60.6 % Lymphocytes (%) (Auto) 28.2 % Monocytes (%) (Auto) 5.7 % Eosinophils (%) (Auto) 4.9 % Basophils (%) (Auto) 0.6 % Neutrophils # (Auto) 5.6 TH/MM3 Lymphocytes # (Auto) 2.6 TH/MM3 Monocytes # (Auto) 0.5 TH/MM3 Eosinophils # (Auto) 0.5 TH/MM3 Basophils # (Auto) 0.1 TH/MM3 CBC Comment DIFF FINAL Differential Comment Blood Urea Nitrogen 19 MG/DL 23 MG/DL Creatinine 1.62 MG/DL 1.65 MG/DL Random Glucose 103 MG/DL 97 MG/DL Total Protein 8.3 GM/DL Albumin 4.8 GM/DL Calcium Level 9.1 MG/DL 7.9 MG/DL Alkaline Phosphatase 83 U/L Aspartate Amino Transf (AST/SGOT) 40 U/L Alanine Aminotransferase (ALT/SGPT) 40 U/L Total Bilirubin 0.5 MG/DL Sodium Level 137 MEQ/L 141 MEQ/L Potassium Level 4.0 MEQ/L 3.7 MEQ/L Chloride Level 101 MEQ/L 108 MEQ/L Carbon Dioxide Level 23.1 MEQ/L 22.2 MEQ/L Anion Gap 13 MEQ/L 11 MEQ/L Estimat Glomerular Filtration Rate 47 ML/MIN 46 ML/MIN Salicylates Level 2.0 MG/DL Acetaminophen Level LESS THAN 2.0 MCG/ML Ethyl Alcohol Level LESS THAN 3 MG/DL Urine Opiates Screen NEG Urine Barbiturates Screen NEG Urine Amphetamines Screen NEG Urine Benzodiazepines Screen NEG Urine Cocaine Screen POS Urine Cannabinoids Screen NEG MDM Medical Decision Making Medical Screen Exam Complete: Yes Emergency Medical Condition: Yes Interpretation(s) EKG at 1922: NSR at 87BPM, qt/qtc: 352/397, no acute ST or T-wave changes Differential Diagnosis Differential includes drug overdose, suicidal evaluations, gastric ulcer, gastroenteritis, electrolyte abnormality Narrative Course Patient is a 41-year-old male who was brought to emergency room by his father for evaluation of suicidal ideation. Patient ingested 350-400 tabs of Advil 20 mg at 1 PM today and attempt to commit suicide. Patient was placed in a Rubin act upon arrival to the emergency room. Tox screen was ordered including BMP. Patient was placed on a cardiac tech. Call was made to poison control who recommended observation with a repeat BMP in 4-6 hours, recommended seizure precautions. Leticia Damon DO Jan 10, 2017 19:54
[2017-01-10 19:57] VITALS: BP 127/76; PULSE 81; RESP 18; O2SAT 99
[2017-01-10 19:57] LABS: ALT (GPT) 40 U/L (12-78)
[2017-01-10 19:59] LABS: ALKALINE PHOSPHATASE 83 U/L (45-117); TOTAL BILIRUBIN ADULT 0.5 MG/DL (0.2-1.0)
[2017-01-10 20:09] LABS: ANION GAP 13 MEQ/L (5-15); AST (GOT) 40 U/L (15-37); BICARBONATE 23.1 MEQ/L (21.0-32.0); BLOOD UREA NITROGEN 19 MG/DL (7-18); CHLORIDE 101 MEQ/L (98-107); GLOMERULAR FILTRATION RATE 47 ML/MIN (>89); SODIUM (NA) 137 MEQ/L (136-145)
[2017-01-10 20:10] LABS: ACETAMINOPHEN LESS THAN 2.0 MCG/ML (10.0-30.0); ALCOHOL LESS THAN 3 MG/DL (0-5)
[2017-01-10 20:54] VITALS: BP 125/70; PULSE 77; RESP 18; O2SAT 100
[2017-01-11 00:50] LABS: BICARBONATE 22.2 MEQ/L (21.0-32.0); POTASSIUM 3.7 MEQ/L (3.5-5.1)
[2017-01-11 03:00] VITALS: BP 126/77; PULSE 69; RESP 18; O2SAT 99
[2017-01-11 06:29] VITALS: BP 116/65; PULSE 71; RESP 18; O2SAT 99
[2017-01-11 06:30] VITALS: BP 116/65; PULSE 71; RESP 14; O2SAT 98
--- NOTE | 2017-01-11 14:02 | EKG ---
Date Performed: 01/10/2017 Time Performed: 19:22:45 PTAGE: 41 years EKG: Sinus rhythm POSSIBLE RIGHT VENTRICULAR CONDUCTION DELAY BORDERLINE ECG Compared to prior tracing no significant change PREVIOUS TRACING : 08/13/2016 17.41 DOCTOR: Zeferino Smith Interpretating Date/Time 01/11/2017 14:00:39
[2017-01-11 16:20] VITALS: BP 143/75; O2SAT 100
--- NOTE | 2017-01-11 16:37 | PD ---
History of Present Illness Chief Complaint: OD/ Ingestion Time Seen by Provider: 16:00 Travel History International Travel<30 Days: No Contact w/Intl Traveler<30days: No Known affected area: No Legal Status Legal Status: Rubin Act Rubin Act Signed By: ED DOCTOR History of Present Illness: History of Present Illness HPI Patient is a 41-year-old male with no previous psychiatric history who who presents to emergency room with his father for evaluation after an alleged intentional overdose. As per ed documentation he reported " that he is very depressed, reports that he has history of depression, anxiety, OCD, patient reports that around 1 PM this afternoon he ingested about 350-400 tablets of Advil which were 200 mg in attempt to commit suicide. " He apparently waited for his father to leave the house and ingested a " handful of pills". The patient was placed under a rubin act by Ed provider. Patient seen. EMR reviewed. This patient was seen in ED in July of 2016 after he was found unresponsive after he took some Dilaudid. Current toxicology is positive for cocaine patient was monitored in J pod. He is alert and oriented, dressed in [facility]. He is cooperative with clear speech. Mood is depressed. There is no indication that he is experiencing any psychosis or malik. He minimizes his suicide attempt and is requesting to be discharged. He does acknowledge that he was feeling overwhelmed with his school work as well as feeling frustrated. He denies current suicdal ideation, intent or plan. Telephone call to patient's father [phone].. Father reports that he is very concerned over his son as he has threatened to commit suicide on different occasions and that he doesn't believe that he has a future due to his legal issues. PFSH Past Medical History Anxiety: Yes Insomnia: Yes Kidney Stones: Yes Musculoskeletal: Yes (chronic back pain) Psychiatric: Yes (HX OF SUICIDE) Psychiatric History Psychiatric History Hx Psychiatric Treatment: DENIES History of Inpatient Treatment: No Guns or firearms in home: No Social History Single male.Lives with his father. Attends [employer] Alcohol Use: No Hx Tobacco Use: Yes (1/2 PACK per records) Hx Substance Use: Yes Substance Use Type: Prescription Medications, Cocaine Hx of Substance Use Treatment: No Family Psychiatric History Negative Allergies-Medications (Allergen,Severity, Reaction): Coded Allergies: ketorolac (Unverified Allergy, Mild, 12/07/16) PT STATES NOT ALLERGIC, SHANNON WRAY MADE AWARE amitriptyline (Unverified Adverse Reaction, Severe, 12/07/16) tramadol (Unverified Adverse Reaction, Unknown, 12/07/16) stomach ache Reported Meds & Prescriptions Reported Meds & Active Scripts Active Trazodone (Trazodone HCl) 50 Mg Tab 50 Mg PO HS Review of Systems Except as stated in HPI: all other systems reviewed are Neg Exam Alert: Yes [place]: Person (ox4) Mood: Calm Affect: Manic Speech: Clear, Logical Eye Contact: Normal Memory Intact: Comment (not impaired. ) Hallucinations: Other (Denies any ) Delusions: No MDM Medical Decision Making Medical Record Reviewed: Yes Assessment/Plan Patient is a 41-year-old male with no previous psychiatric history who who presents to emergency room with his father for evaluation after an alleged intentional overdose. As per ed documentation he reported " that he is very depressed, reports that he has history of depression, anxiety, OCD, patient reports that around 1 PM this afternoon he ingested about 350-400 tablets of Advil which were 200 mg in attempt to commit suicide. " He apparently waited for his father to leave the house and ingested a " handful of pills". The patient was placed under a rubin act by Ed provider. Patient has been placed on SMA list for further care.At this time the patient will remain on SMA list as this provider does not feel it is safe to discharge him home. Orders Orders Complete Blood Count With Diff (01/10/17 19:12) Comprehensive Metabolic Panel (01/10/17 19:12) Electrocardiogram (01/10/17 19:12) Iv Access Insert/Monitor (01/10/17 19:12) Ecg Monitoring (01/10/17 19:12) Psych Screen (01/10/17 19:12) Sodium Chloride 0.9% Flush (Ns Flush) (01/10/17 19:15) Drug Screen, Random Urine (01/10/17 19:12) Alcohol (Ethanol) (01/10/17 19:12) Salicylates (Aspirin) (01/10/17 19:12) Tylenol (Acetaminophen) (01/10/17 19:12) Pantoprazole Inj (Protonix Inj) (01/10/17 19:15) Sodium Chlor 0.9% 1000 Ml Inj (Ns 1000 M (01/10/17 19:12) Basic Metabolic Panel (Bmp) (01/10/17 23:28) Diet Regular Basic (01/11/17 Breakfast) Diet Regular Basic (01/11/17 Dinner) Results Vital Signs Date Time Temp Pulse Resp B/P (MAP) Pulse Ox O2 Delivery O2 Flow Rate FiO2 01/11/17 16:20 61 16 143/75 (97) 100 Room Air 01/11/17 06:30 71 14 116/65 (82) 98 Room Air 01/11/17 06:29 71 18 116/65 (82) 99 Room Air 01/11/17 03:00 69 18 126/77 (93) 99 Room Air 01/10/17 20:54 77 18 125/70 (88) 100 Room Air 01/10/17 19:57 81 18 127/76 (93) 99 Room Air Laboratory Tests Test 01/10/17 19:26 01/10/17 23:40 01/11/17 00:11 White Blood Count 9.3 Red Blood Count 4.94 Hemoglobin 16.0 Hematocrit 47.4 Mean Corpuscular Volume 96.0 Mean Corpuscular Hemoglobin 32.4 Mean Corpuscular Hemoglobin Concent 33.7 Red Cell Distribution Width 13.5 Platelet Count 214 Mean Platelet Volume 9.1 Neutrophils (%) (Auto) 60.6 Lymphocytes (%) (Auto) 28.2 Monocytes (%) (Auto) 5.7 Eosinophils (%) (Auto) 4.9 Basophils (%) (Auto) 0.6 Neutrophils # (Auto) 5.6 Lymphocytes # (Auto) 2.6 Monocytes # (Auto) 0.5 Eosinophils # (Auto) 0.5 Basophils # (Auto) 0.1 CBC Comment DIFF FINAL Differential Comment Blood Urea Nitrogen 19 23 Creatinine 1.62 1.65 Random Glucose 103 97 Total Protein 8.3 Albumin 4.8 Calcium Level 9.1 7.9 Alkaline Phosphatase 83 Aspartate Amino Transf (AST/SGOT) 40 Alanine Aminotransferase (ALT/SGPT) 40 Total Bilirubin 0.5 Sodium Level 137 141 Potassium Level 4.0 3.7 Chloride Level 101 108 Carbon Dioxide Level 23.1 22.2 Anion Gap 13 11 Estimat Glomerular Filtration Rate 47 46 Salicylates Level 2.0 Acetaminophen Level LESS THAN 2.0 Ethyl Alcohol Level LESS THAN 3 Urine Opiates Screen NEG Urine Barbiturates Screen NEG Urine Amphetamines Screen NEG Urine Benzodiazepines Screen NEG Urine Cocaine Screen POS Urine Cannabinoids Screen NEG Diagnosis Primary Impression: Substance induced mood disorder Disposition: 65 DISC TO PSYCH CARE FACILITY Condition: Stable Traci Denis [facility] Jan 11, 2017 16:37
[2017-01-11] MEDS ORDERED: NICOTINE 21 MG/24 HR PATCH T-DERMAL ONE (18:00)
--- NOTE | 2017-01-11 18:43 | PD ---
Physical Exam Time Seen by Provider: 18:41 ALONDRA Castañeda, has evaluated the patient and lifted Rubin act and the patient will be discharged with transportation over to [facility] for continued evaluation. Data Data Last Documented VS Vital Signs Date Time Temp Pulse Resp B/P (MAP) Pulse Ox O2 Delivery O2 Flow Rate FiO2 01/11/17 16:20 61 16 143/75 (97) 100 Room Air Orders Orders Complete Blood Count With Diff (01/10/17 19:12) Comprehensive Metabolic Panel (01/10/17 19:12) Electrocardiogram (01/10/17 19:12) Iv Access Insert/Monitor (01/10/17 19:12) Ecg Monitoring (01/10/17 19:12) Psych Screen (01/10/17 19:12) Sodium Chloride 0.9% Flush (Ns Flush) (01/10/17 19:15) Drug Screen, Random Urine (01/10/17 19:12) Alcohol (Ethanol) (01/10/17 19:12) Salicylates (Aspirin) (01/10/17 19:12) Tylenol (Acetaminophen) (01/10/17 19:12) Pantoprazole Inj (Protonix Inj) (01/10/17 19:15) Sodium Chlor 0.9% 1000 Ml Inj (Ns 1000 M (01/10/17 19:12) Basic Metabolic Panel (Bmp) (01/10/17 23:28) Diet Regular Basic (01/11/17 Breakfast) Diet Regular Basic (01/11/17 Dinner) Nicotine 21 Mg Patch.24 Hr (Habitrol 21 (01/11/17 18:00) Remove Old Patch (01/11/17 21:00) Labs Laboratory Tests Test 01/10/17 19:26 01/10/17 23:40 01/11/17 00:11 White Blood Count 9.3 TH/MM3 Red Blood Count 4.94 MIL/MM3 Hemoglobin 16.0 GM/DL Hematocrit 47.4 % Mean Corpuscular Volume 96.0 FL Mean Corpuscular Hemoglobin 32.4 PG Mean Corpuscular Hemoglobin Concent 33.7 % Red Cell Distribution Width 13.5 % Platelet Count 214 TH/MM3 Mean Platelet Volume 9.1 FL Neutrophils (%) (Auto) 60.6 % Lymphocytes (%) (Auto) 28.2 % Monocytes (%) (Auto) 5.7 % Eosinophils (%) (Auto) 4.9 % Basophils (%) (Auto) 0.6 % Neutrophils # (Auto) 5.6 TH/MM3 Lymphocytes # (Auto) 2.6 TH/MM3 Monocytes # (Auto) 0.5 TH/MM3 Eosinophils # (Auto) 0.5 TH/MM3 Basophils # (Auto) 0.1 TH/MM3 CBC Comment DIFF FINAL Differential Comment Blood Urea Nitrogen 19 MG/DL 23 MG/DL Creatinine 1.62 MG/DL 1.65 MG/DL Random Glucose 103 MG/DL 97 MG/DL Total Protein 8.3 GM/DL Albumin 4.8 GM/DL Calcium Level 9.1 MG/DL 7.9 MG/DL Alkaline Phosphatase 83 U/L Aspartate Amino Transf (AST/SGOT) 40 U/L Alanine Aminotransferase (ALT/SGPT) 40 U/L Total Bilirubin 0.5 MG/DL Sodium Level 137 MEQ/L 141 MEQ/L Potassium Level 4.0 MEQ/L 3.7 MEQ/L Chloride Level 101 MEQ/L 108 MEQ/L Carbon Dioxide Level 23.1 MEQ/L 22.2 MEQ/L Anion Gap 13 MEQ/L 11 MEQ/L Estimat Glomerular Filtration Rate 47 ML/MIN 46 ML/MIN Salicylates Level 2.0 MG/DL Acetaminophen Level LESS THAN 2.0 MCG/ML Ethyl Alcohol Level LESS THAN 3 MG/DL Urine Opiates Screen NEG Urine Barbiturates Screen NEG Urine Amphetamines Screen NEG Urine Benzodiazepines Screen NEG Urine Cocaine Screen POS Urine Cannabinoids Screen NEG MDM Supervised Visit with LEATHA: No Narrative ALONDRA Jones, has evaluated the patient and lifted Caryn lopez and the patient will be discharged with transportation over to [facility] for continued evaluation. Patient contracts safety. Denies suicidal or homicidal ideations. Has friends and family for support. Patient is medically cleared for discharge. Diagnosis Primary Impression: Depression Qualified Codes: F32.9 - Major depressive disorder, single episode, unspecified Referrals: [facility]ARCUS (Out patient) Primary Care Physician Psychiatrist [facility] Patient Instructions: Depression (ED), General Instructions, Suicide Prevention for Adults (ED) Additional Instruction: Contract safety to your self and others Follow-up with psychiatry Follow-up with primary care provider Follow-up with Beltran Reveles Return to the emergency department immediately with worsening of symptoms Med/Other Pt SpecificInfo: No Meds Exist/No RX given Disposition: 01 DISCHARGE HOME Condition: Stable Prema Camacho Jan 11, 2017 18:43
[2017-01-11 18:47] VITALS: BP 143/75; TEMP 98
[2017-01-11] MEDS ORDERED: REMOVE OLD NICODERM (NICOTINE) PATCH T-DERMAL SCH (21:00)
== END 2017-01-11 18:50 | disposition home or self-care (01) ==
LOC: NEPE 18:45 → NEPJ 01-11 18:50
DX: F32.9 Major depressive disorder, single episode, unspecified (principal); F19.94 Other psychoactive substance use, unspecified with psychoactive substance-induced mood disorder; T39.312A Poisoning by propionic acid derivatives, intentional self-harm, initial encounter; R94.31 Abnormal electrocardiogram [ECG] [EKG]; G47.00 Insomnia, unspecified; Z72.0 Tobacco use; Z86.59 Personal history of other mental and behavioral disorders; Z87.39 Personal history of other diseases of the musculoskeletal system and connective tissue; Z87.442 Personal history of urinary calculi
CPT/HCPCS: 80048; 80053; 80307; 85025; 93005; 96361; 96374; 99284; C9113; J7030

== ENCOUNTER 2017-04-19 09:58 | Emergency (ER) | payer OTHER ==
[~2017-04-19] VITALS: Ht 190.5 cm; Wt 86.0 kg
[2017-04-19 10:00] VITALS: BP 141/97; PULSE 105; RESP 28; TEMP 98.4; O2SAT 99
[2017-04-19] MEDS ORDERED: HYDROmorphone HCL PF 2 MG/ML VIAL IV PUSH ONE ×2 (10:30→11:30)
[2017-04-19] MEDS ORDERED: ONDANSETRON HCL 4 MG/2 ML VIAL IV PUSH ONE (10:30)
--- NOTE | 2017-04-19 10:46 | PD ---
HPI Chief Complaint: Back/ Neck Pain or Injury Time Seen by Provider: 10:18 Travel History International Travel<30 days: No Contact w/Intl Traveler<30days: No Traveled to known affect area: No History of Present Illness HPI 41-year-old male presents to the emergency department for evaluation of low back pain and right low back pain that radiates down the right leg. He reports numbness to the right leg. Patient reports history of chronic back pain. He is currently on the code, alprazolam, Soma. He states he took these this morning without improvement. He denies any recent injury. Patient does report history of discectomy several years ago. He had an MRI done on April 06, 2017. I reviewed images and report. This showed disc bulge at L3 to 4 without neural impingement, right paracentral disc protrusion L4 to 5 with right lateral recess narrowing impinging L4 and L5 nerve roots. There is a previous right hemilaminectomy with no intradural granulation tissue. Disc osteophyte complex L5-S1 with inferior foraminal narrowing, right worse than left. There is a previous right humeral laminectomy, no intradural or paraspinal abnormality. Patient reports the pain has been worse than usual. He denies any fevers or chills. He denies any history of IV drug use. No bowel or bladder incontinence. Patient reports is difficult to walk due to pain in his right leg. He is moving all extremities equally during my examination. Movement exacerbates pain. No associated symptoms. Moderate severity. PFSH Past Medical History Anxiety: Yes Insomnia: Yes Kidney Stones: Yes Musculoskeletal: Yes (chronic back pain) Psychiatric: Yes (HX SUICIDE ATTEMPT) Social History Alcohol Use: No Tobacco Use: Yes (1/2 PACK per records) Substance Use: Yes Allergies-Medications (Allergen,Severity, Reaction): Coded Allergies: ketorolac (Unverified Allergy, Mild, 04/19/17) PT STATES NOT ALLERGIC, SHANNON WRAY MADE AWARE amitriptyline (Unverified Adverse Reaction, Severe, 04/19/17) tramadol (Unverified Adverse Reaction, Unknown, 04/19/17) stomach ache Reported Meds & Prescriptions Reported Meds & Active Scripts Active Trazodone (Trazodone HCl) 50 Mg Tab 50 Mg PO HS Reported Xanax (Alprazolam) 1 Mg Tab 1 Mg PO Q6H PRN Oxycodone (Oxycodone HCl) 15 Mg Tab 15 Mg PO Q4H PRN Soma (Carisoprodol) 350 Mg Tab 350 Mg PO QID PRN Review of Systems Except as stated in HPI: all other systems reviewed are Neg Physical Exam Narrative GENERAL: Well-nourished, well-developed male patient, afebrile. SKIN: Focused skin assessment warm/dry. HEAD: Normocephalic. EYES: No scleral icterus. No injection or drainage. NECK: Supple, trachea midline. No JVD or lymphadenopathy. CARDIOVASCULAR: Regular rate and rhythm without murmurs, gallops, or rubs. Lateral radial and pedal pulses are 2+. RESPIRATORY: Breath sounds equal bilaterally. No accessory muscle use. Lungs sounds are clear to auscultation. GASTROINTESTINAL: Abdomen soft, non-tender, nondistended. MUSCULOSKELETAL: No cyanosis, or edema. Bilateral upper and lower extremity strength 5/5. Patient moves all extremities equally. BACK: No obvious deformity. No CVA tenderness. Patient has tenderness to palpation or midline lower lumbar spine, right lumbar paraspinal musculature. Straight leg raise is positive on the right side. No clonus. Patellar reflexes 2+. Data Data Last Documented VS Vital Signs Date Time Temp Pulse Resp B/P (MAP) Pulse Ox O2 Delivery O2 Flow Rate FiO2 04/19/17 10:00 98.4 105 28 141/97 (112) 99 Orders Orders Iv Access Insert/Monitor (04/19/17 10:29) Hydromorphone Pf Inj (Dilaudid Pf Inj) (04/19/17 10:30) Ondansetron Inj (Zofran Inj) (04/19/17 10:30) Hydromorphone Pf Inj (Dilaudid Pf Inj) (04/19/17 11:30) Ed Discharge Order (04/19/17 11:33) MDM Medical Decision Making Medical Screen Exam Complete: Yes Emergency Medical Condition: Yes Medical Record Reviewed: Yes Differential Diagnosis Acute exacerbation of chronic back pain versus herniated disc versus intractable back pain Narrative Course 41-year-old male presents to the emergency department for worsening right low back pain with numbness to the right leg. Patient appears in pain, moaning. He states that he is allergic to Toradol and tramadol. He states that Dilaudid will usually help his pain. I reviewed his MRI from April 06, 2017. Patient is given Dilaudid 1 mg IV, Zofran 4 mg IV. Upon reexamination, patient states his pain is down to 7 out of 10. Patient will be given second dose of Dilaudid 1 mg IV. He is instructed to follow up with neurosurgeon as he has been referred to. My attending physician, Dr. Talbot, is aware of plan and agrees. He also reviewed MRI images and report with me. Patient is to return for any acute worsening of symptoms. Patient is ambulatory at discharge. The patient was discharged in stable condition with instructions, including return instructions and follow up instructions. Diagnosis Primary Impression: Acute exacerbation of chronic low back pain Referrals: Neurosurgeon call for appointment Patient Instructions: Chronic Back Pain (ED), General Instructions Additional Instructions: Continue medications that you are already prescribed. Follow-up with your pain management physician and neurosurgeon. Return to the emergency department for any acute worsening of symptoms. Med/Other Pt SpecificInfo: No Change to Meds Disposition: 01 DISCHARGE HOME Condition: Stable Eleanor Dodd Apr 19, 2017 10:46
[2017-04-19] MEDS ORDERED: SOMA350T PO (11:43)
[2017-04-19] MEDS ORDERED: XANA1TAB2 PO (11:43)
[2017-04-19] MEDS ORDERED: OXYC15TA PO (11:43)
== END 2017-04-19 11:55 | disposition home or self-care (01) ==
LOC: NEPD 09:58
DX: M54.5 Low back pain (principal); G89.29 Other chronic pain; R20.0 Anesthesia of skin; F41.9 Anxiety disorder, unspecified; G47.00 Insomnia, unspecified
CPT/HCPCS: 96374; 96375; 96376; 99284; J1170; J2405

== ENCOUNTER 2017-04-20 00:02 | Emergency (ER) | payer OTHER ==
[~2017-04-20] VITALS: Ht 190.5 cm; Wt 86.0 kg
[~2017-04-20 00:02] MED LIST changes: +OXYC15TA PO; +SOMA350T PO; +XANA1TAB2 PO
[2017-04-20 00:08] VITALS: BP 141/92; PULSE 115; RESP 22; TEMP 98.7; O2SAT 96
--- NOTE | 2017-04-20 00:37 | PD ---
HPI . Sciatica Chief Complaint: Back/ Neck Pain or Injury Time Seen by Provider: 00:19 Travel History International Travel<30 days: No Contact w/Intl Traveler<30days: No History of Present Illness HPI This patient presents with the chief complaint of acute exacerbation of chronic back pain/sciatica. He was seen earlier today and treated with Dilaudid. He comes back tonight complaining with recurrence of the pain once the Dilaudid wore off. He denies fever. He denies a history of IV drug abuse. He denies perineal anesthesia. His symptoms tonight are exactly as they have been except that they are worse. History Social History Alcohol Use: No Tobacco Use: Yes (1/2 PACK per records) Allergies-Medications (Allergen,Severity, Reaction): Coded Allergies: ketorolac (Unverified Allergy, Mild, 04/20/17) PT STATES NOT ALLERGIC, SHANNON WRAY MADE AWARE amitriptyline (Unverified Adverse Reaction, Severe, 04/20/17) tramadol (Unverified Adverse Reaction, Unknown, 04/20/17) stomach ache Reported Meds & Prescriptions Reported Meds & Active Scripts Active Reported Xanax (Alprazolam) 1 Mg Tab 1 Mg PO Q6H PRN Oxycodone (Oxycodone HCl) 15 Mg Tab 15 Mg PO Q4H PRN Soma (Carisoprodol) 350 Mg Tab 350 Mg PO QID PRN Review of Systems Except as stated in HPI: all other systems reviewed are Neg General / Constitutional: No: Fever, Chills Genitourinary: No: Incontinence Musculoskeletal: Positive: Pain (back pain) Neurologic: No: Incontinence Physical Exam Narrative GENERAL: Awake and alert and in no acute distress. SKIN: Warm and dry. HEAD: Normocephalic/atraumatic. EYES: Pupils are equal. Extraocular movements are intact. NECK: Normal range of motion. CARDIOVASCULAR: Regular rate and rhythm. RESPIRATORY: Nonlabored respirations. MUSCULOSKELETAL: Atraumatic. NEUROLOGICAL: Nonfocal. PSYCHIATRIC: Appropriate mood and affect. Data Data Last Documented VS Vital Signs Date Time Temp Pulse Resp B/P (MAP) Pulse Ox O2 Delivery O2 Flow Rate FiO2 04/20/17 00:08 98.7 115 22 141/92 (108) 96 MDM Medical Screen Exam Complete: Yes Emergency Medical Condition: No Narrative Course This patient presents with chronic back pain. He has artery been seen here once today for same. I have reviewed his records. I have also reviewed [facility]. He has reportedly had a recent MRI. Please see his previous record from today for that report. He has had previous malingering presumably wanting narcotics. He has records dating back to 2004 for he has been here requesting narcotics. On his very first visit to this facility, he claimed that his Percocet and Soma had been lost. A medical screening exam was performed: At the time of evaluation the presenting medical condition was determined not to be of an emergent nature. The patient was given the option of receiving additional care, but declined. Patient was given options for additional community resources from which to obtain care. The Patient Has Been advised to seek medical attention for their presenting complaint. The patient has been advised to return to the ER at any time if an emergent condition develops. Primary Impression: Encounter for medical screening examination Condition: Stable Ruthie Howell MD Apr 20, 2017 00:37
== END 2017-04-20 00:45 | disposition left against medical advice (07) ==
LOC: NEPD 00:02
DX: M54.9 Dorsalgia, unspecified (principal); G89.29 Other chronic pain
CPT/HCPCS: 99281

== ENCOUNTER 2017-05-06 08:31 | Emergency (ER) | payer OTHER ==
[~2017-05-06] VITALS: Ht 190.5 cm; Wt 85.0 kg
[~2017-05-06 08:31] MED LIST changes: -TRAZ50TA12 PO
[2017-05-06 08:33] VITALS: BP 190/102; PULSE 114; RESP 20; TEMP 98.6; O2SAT 99
--- NOTE | 2017-05-06 09:28 | PD ---
HPI Chief Complaint: Back/ Neck Pain or Injury Time Seen by Provider: 09:03 Travel History International Travel<30 days: No Contact w/Intl Traveler<30days: No Traveled to known affect area: No History of Present Illness HPI has history of chronic back pain and is scheduled to have a discectomy with dr walker of [facility]...however , patient presents here to [facility] for pain control, denies any urinary/fecal incontinence, 9/10 pain, has a pain management doctor already (however that did not stop him from asking for a prescription to go home on) PFSH Past Medical History Anxiety: Yes Insomnia: Yes Kidney Stones: Yes Musculoskeletal: Yes (chronic back pain) Psychiatric: Yes (HX SUICIDE ATTEMPT) Social History Alcohol Use: No Tobacco Use: Yes (1/2 PACK per records) Substance Use: Yes (6 months ago cocaine ) Allergies-Medications (Allergen,Severity, Reaction): Coded Allergies: ketorolac (Unverified Allergy, Mild, 05/06/17) PT STATES NOT ALLERGIC, SHANNON WRAY MADE AWARE amitriptyline (Unverified Adverse Reaction, Severe, 05/06/17) tramadol (Unverified Adverse Reaction, Unknown, 05/06/17) stomach ache Reported Meds & Prescriptions Reported Meds & Active Scripts Active Reported Xanax (Alprazolam) 1 Mg Tab 1 Mg PO Q6H PRN Oxycodone (Oxycodone HCl) 15 Mg Tab 15 Mg PO Q4H PRN Soma (Carisoprodol) 350 Mg Tab 350 Mg PO QID PRN Review of Systems Musculoskeletal: Positive: Pain (back) Physical Exam Narrative GENERAL: SKIN: Warm and dry. HEAD: Atraumatic. Normocephalic. EYES: Pupils equal and round. No scleral icterus. No injection or drainage. ENT: No nasal bleeding or discharge. Mucous membranes pink and moist. NECK: Trachea midline. No JVD. CARDIOVASCULAR: Regular rate and rhythm. RESPIRATORY: No accessory muscle use. Clear to auscultation. Breath sounds equal bilaterally. GASTROINTESTINAL: Abdomen soft, non-tender, nondistended. MUSCULOSKELETAL: Extremities without clubbing, cyanosis, or edema. No obvious deformities. NEUROLOGICAL: Awake and alert. No obvious cranial nerve deficits. Motor grossly within normal limits. Five out of 5 muscle strength in the arms and legs. Normal speech. PSYCHIATRIC: Appropriate mood and affect; insight and judgment normal. Data Data Last Documented VS Vital Signs Date Time Temp Pulse Resp B/P (MAP) Pulse Ox O2 Delivery O2 Flow Rate FiO2 05/06/17 08:33 98.6 114 20 190/102 (131) 99 MDM Medical Decision Making Medical Screen Exam Complete: Yes Emergency Medical Condition: Yes Medical Record Reviewed: Yes Differential Diagnosis chronic pain n/a Narrative Course I made patient aware that he will not be given any prescriptions since he has a contract with pain management. However he will receive pain medication in dept....also patient presented MRI that shows L5/L4 bulging disc and states this is the area that will have surgery on Diagnosis Primary Impression: Acute exacerbation of chronic low back pain Disposition: 01 DISCHARGE HOME Condition: Stable Tushar Hennessy MD May 06, 2017 09:28
[2017-05-06] MEDS ORDERED: HYDROmorphone HCL PF 2 MG/ML VIAL SQ ONE (09:45)
== END 2017-05-06 10:29 | disposition home or self-care (01) ==
LOC: NEPD 08:31
DX: M54.5 Low back pain (principal); G89.29 Other chronic pain; F17.200 Nicotine dependence, unspecified, uncomplicated
CPT/HCPCS: 96372; 99284; J1170

== ENCOUNTER 2017-08-03 16:03 | Emergency (ER) | payer BC, OTHER ==
[~2017-08-03] VITALS: Ht 190.5 cm; Wt 88.0 kg
[2017-08-03 16:06] VITALS: BP 132/82; PULSE 112; RESP 22; TEMP 98.1; O2SAT 99
[2017-08-03] MEDS ORDERED: ORPHENADRINE INJ 60 MG/2 ML AMP IV ONE (16:30)
[2017-08-03] MEDS ORDERED: oxyCODONE/ACETAMINOPHEN 5 MG/325 MG TAB PO ONE (16:30)
[2017-08-03] MEDS ORDERED: DEXAMETHASONE SOD PHOS 20 MG/5 ML VIAL IV PUSH ONE (16:30)
--- NOTE | 2017-08-03 17:01 | PD ---
HPI Chief Complaint: Back/ Neck Pain or Injury Time Seen by Provider: 16:12 Travel History International Travel<30 days: No Contact w/Intl Traveler<30days: No Traveled to known affect area: No History of Present Illness HPI Patient is a 41-year-old male presenting to the emergency department for evaluation of low back pain. Patient started on Tuesday, getting progressively worse, prompting his visit to the emergency department today. Patient denies any injury or trauma. He states he woke up and felt a "pop". He states the pain radiates from his buttocks down his right leg. He has been taking ibuprofen with no improvement in his symptoms. He states his pain is a 9 out of 10, worse with position changes. He denies any bladder or bowel incontinence , no saddle paresthesia, no weakness in extremities. Patient reports that he had a discectomy of L4-L5 at the end of April with Dr. Dean. He does have a history of sciatica. He has not attempted to contact his primary doctor. Patient has had similar episodic flareups in the past prior to the discectomy. PFSH Past Medical History Anxiety: Yes Insomnia: Yes Kidney Stones: Yes Musculoskeletal: Yes (chronic back pain) Psychiatric: Yes (HX SUICIDE ATTEMPT) Social History Alcohol Use: No Tobacco Use: Yes (1/2 PACK per records) Substance Use: Yes (6 months ago cocaine ) Allergies-Medications (Allergen,Severity, Reaction): Coded Allergies: ketorolac (Unverified Allergy, Mild, 05/06/17) PT STATES NOT ALLERGIC, SHANNON WRAY MADE AWARE amitriptyline (Unverified Adverse Reaction, Severe, 05/06/17) tramadol (Unverified Adverse Reaction, Unknown, 05/06/17) stomach ache Reported Meds & Prescriptions Reported Meds & Active Scripts Active Reported Xanax (Alprazolam) 1 Mg Tab 1 Mg PO Q6H PRN Oxycodone (Oxycodone HCl) 15 Mg Tab 15 Mg PO Q4H PRN Soma (Carisoprodol) 350 Mg Tab 350 Mg PO QID PRN Review of Systems Except as stated in HPI: all other systems reviewed are Neg Musculoskeletal: Positive: Myalgias, Arthralgias, Pain Physical Exam Narrative GENERAL: Well-developed, well-nourished, alert male. Presenting in no acute distress. SKIN: Warm and dry. HEAD: Atraumatic. Normocephalic. EYES: Pupils equal and round. No scleral icterus. No injection or drainage. ENT: No nasal bleeding or discharge. Mucous membranes pink and moist. NECK: Trachea midline. No JVD. CARDIOVASCULAR: Regular rate and rhythm. RESPIRATORY: No accessory muscle use. Clear to auscultation. Breath sounds equal bilaterally. GASTROINTESTINAL: Abdomen soft, non-tender, nondistended. Hepatic and splenic margins not palpable. MUSCULOSKELETAL: Extremities without clubbing, cyanosis, or edema. No obvious deformities. No spinal tenderness or step-off noted. Tenderness to palpation in the right lower back, buttock. NEUROLOGICAL: Awake and alert. No obvious cranial nerve deficits. Motor grossly within normal limits. Five out of 5 muscle strength in the arms and legs. Normal speech. PSYCHIATRIC: Appropriate mood and affect; insight and judgment normal. Data Data Last Documented VS Vital Signs Date Time Temp Pulse Resp B/P (MAP) Pulse Ox O2 Delivery O2 Flow Rate FiO2 08/03/17 18:28 86 18 143/81 (101) 99 Room Air 08/03/17 16:06 98.1 Orders Orders Orphenadrine Inj (Norflex Inj) (08/03/17 16:30) Dexamethasone Inj (Decadron Inj) (08/03/17 16:30) Oxycodone-Acetamin 5-325 Mg (Percocet (08/03/17 16:30) Ct Lumb Spine W/O Contrast (08/03/17 ) Iv Access Insert/Monitor (08/03/17 16:18) Acetaminophen 1000 Mg/100 Ml (Ofirmev 10 (08/03/17 18:00) MDM Medical Decision Making Medical Screen Exam Complete: Yes Emergency Medical Condition: Yes Medical Record Reviewed: Yes Interpretation(s) Vital Signs Date Time Temp Pulse Resp B/P (MAP) Pulse Ox O2 Delivery O2 Flow Rate FiO2 08/03/17 18:28 86 18 143/81 (101) 99 Room Air 08/03/17 18:00 18 08/03/17 17:15 18 08/03/17 16:06 98.1 112 22 132/82 (99) 99 Last Impressions Lumbar Spine CT 08/03/17 0000 Signed Impressions: Service Date/Time: Thursday, August 03, 2017 17:59 - CONCLUSION: 1. At L4-5 there is focal severe canal stenosis with abnormal soft tissue posterior to the disc interspace, especially on the right side. It is unclear how much of this is postoperative versus a large recurrent disc protrusion or herniation. Bertin Alexander MD Vital Signs Date Time Temp Pulse Resp B/P (MAP) Pulse Ox O2 Delivery O2 Flow Rate FiO2 08/03/17 16:06 98.1 112 22 132/82 (99) 99 Differential Diagnosis Sciatica versus radiculopathy versus spasm versus strain versus sprain versus other Narrative Course Patient is a 41-year-old male, presenting with acute exacerbation of chronic back pain. There are no focal deficits on exam. Patient has no new injury or trauma. Imaging and medications ordered and pending. CT of the lumbar spine shows focal severe canal stenosis with abnormal soft tissue posterior to the disc interspace especially on the right side at L4-L5. Initial discectomy was performed by Dr. Dean at [facility], discussed with on-call physician, Dr. Baron. Dr. Baron was advised on the CT findings and stated patient can follow-up in the office with them tomorrow. Patient will be discharged home, he will be given a short course of pain medication. He was advised to follow-up with Dr. Dean tomorrow, call his office for an appointment. Patient verbalized understanding. Patient stable for discharge. Diagnosis Primary Impression: Acute exacerbation of chronic low back pain Referrals: Neurosurgeon 1 day Follow-up with Dr. Dean in the office tomorrow, call in the morning to schedule an appointment Patient Instructions: Acute Low Back Pain (ED), General Instructions, Sciatica (ED) Additional Instructions: Follow-up with Dr. Dean in the morning Follow-up with your primary doctor Take medication as needed and as directed for pain Return to emergency department for any new or worsening symptoms Med/Other Pt SpecificInfo: Prescription(s) given Scripts Oxycodone-Acetaminophen (Percocet) 5-325 mg Tab 1 TAB PO Q4H Y for PAIN, #10 TAB 0 Refills Prov: Lupe Nichols 08/03/17 Disposition: 01 DISCHARGE HOME Condition: Stable Lupe Nichols Aug 03, 2017 17:01
[2017-08-03] MEDS ORDERED: ACETAMINOPHEN 1000 MG/100 ML 100 ML IV ONE (18:00)
[2017-08-03 18:28] VITALS: BP 143/81; PULSE 86; RESP 18; O2SAT 99
--- NOTE | 2017-08-03 18:35 | RADRPT ---
EXAM DATE/TIME: 08/03/2017 17:59 [facility] COMPARISON: No previous studies available for comparison. INDICATIONS : Discectomy L4- L5 couple weeks ago,today patient felt like something moved RADIATION DOSE: 33.38 CTDIvol (mGy) MEDICAL HISTORY : None SURGICAL HISTORY : Discectomy ENCOUNTER: Initial ACUITY: 1 day PAIN SCALE: 10/10 LOCATION: Lumbar TECHNIQUE: Volumetric scanning of the lumbar spine was performed. Multiplanar reconstructions in the sagittal, coronal and oblique axial planes were performed. Using automated exposure control and adjustment of the mA and/or kV according to patient size, radiation dose was kept as low as reasonably achievable t o obtain optimal diagnostic quality images. DICOM format image data is available electronically for review and comparison. FINDINGS: At [id number] there is no significant abnormality. L3-4 there is a broad-based disc bulge without significant stenosis. At L4-5 there is abnormal soft tissue in the spinal canal, worse on the right side resulting in focal severe thecal sac stenosis and severe right lateral recess effacement. Reportedly there is recent pearl rgery with laminectomy defect noted posteriorly. At L5-S1 there is a posterior discussed by complex without significant central canal stenosis. Mild b ilateral foraminal stenosis. CONCLUSION: 1. At L4-5 there is focal severe canal stenosis with abnormal soft tissue posterior to the disc inter space, especially on the right side. It is unclear how much of this is postoperative versus a large r ecurrent disc protrusion or herniation. Bertin Alexander MD on August 03, 2017 at 18:29 Board Certified Radiologist. This report was verified electronically.
[2017-08-03] MEDS ORDERED: PERC5TAB12 PO (19:30)
[2017-08-03 19:42] VITALS: BP 118/68; PULSE 86; RESP 18; O2SAT 98
[2017-08-03] MEDS ORDERED: MORPHINE SULFATE 2 MG/ML SYRINGE IV PUSH ONE (19:45)
[2017-08-03] MEDS ORDERED: diphenhydrAMINE HCL 50 MG/ML VIAL IV PUSH ONE (20:15)
== END 2017-08-03 20:22 | disposition home or self-care (01) ==
LOC: NEPE 16:03
DX: M54.5 Low back pain (principal); G89.29 Other chronic pain; M48.061 Spinal stenosis, lumbar region without neurogenic claudication; F41.9 Anxiety disorder, unspecified; G47.00 Insomnia, unspecified; F17.200 Nicotine dependence, unspecified, uncomplicated; Z87.442 Personal history of urinary calculi; Z88.8 Allergy status to other drugs, medicaments and biological substances
CPT/HCPCS: 72131; 96365; 96375; 99284; J0131; J1100; J1200; J2270; J2360

== ENCOUNTER 2017-08-14 12:27 | Emergency (ER) | payer BC ==
[~2017-08-14] VITALS: Ht 190.5 cm; Wt 90.0 kg
[~2017-08-14 12:27] MED LIST changes: +PERC5TAB12 PO
[2017-08-14 12:36] VITALS: BP 129/90; PULSE 94; RESP 16; TEMP 98.1; O2SAT 99
[2017-08-14] MEDS ORDERED: IBUP1TAB7 PO (12:46)
[2017-08-14] MEDS ORDERED: OXYC1CAP PO (12:46)
[2017-08-14] MEDS ORDERED: ZANA4CAP PO (12:46)
[2017-08-14] MEDS ORDERED: DICL75TA PO (13:22)
[2017-08-14] MEDS ORDERED: MEDR4PAK PO (13:22)
--- NOTE | 2017-08-14 13:27 | PD ---
HPI Chief Complaint: Back/ Neck Pain or Injury Time Seen by Provider: 12:39 Travel History International Travel<30 days: No Contact w/Intl Traveler<30days: No Traveled to known affect area: No History of Present Illness HPI 41-year-old male presents for evaluation of lower back pain. Patient reports a long-standing history of lower back issues. He reports that he underwent discectomy of the L4-L5 at the end of April with Dr. Dean. Initially he was pain-free after the surgery but over the past 2 weeks he has developed increasing lower back pain that radiates into the right buttocks. Pain is a sharp pain which is worse with movement and unrelieved with his prescribed Zanaflex, Percocet, as well as occasional [id number] ibuprofen. He denies any injury. Denies fevers or chills, bowel bladder incontinence, saddle anesthesia. He was seen here for similar symptoms in August 03. He had a CT of the lumbar spine performed which revealed severe canal stenosis with abnormal soft tissue posterior to the disc interspace especially on the right side at L4- L5. At that time this was discussed with the on-call orthopedist for Dr. Dean who felt that the patient follow-up as an outpatient. He has since been seen by Dr. Dean's office and has an MRI of the lumbar spine with and without contrast ordered for this week. He presents today requesting pain control. He has no other complaints at this time. PFSH Past Medical History Anxiety: Yes Insomnia: Yes Kidney Stones: Yes Musculoskeletal: Yes (chronic back pain) Psychiatric: Yes (HX SUICIDE ATTEMPT) Social History Alcohol Use: No Tobacco Use: Yes (5-6 daily ) Substance Use: No (1 year ago) Allergies-Medications (Allergen,Severity, Reaction): Coded Allergies: morphine (Verified Allergy, Severe, Hives, 08/14/17) ketorolac (Unverified Allergy, Mild, 05/06/17) PT STATES NOT ALLERGIC, SHANNON WRAY MADE AWARE amitriptyline (Unverified Adverse Reaction, Severe, 05/06/17) tramadol (Unverified Adverse Reaction, Unknown, 05/06/17) stomach ache Reported Meds & Prescriptions Reported Meds & Active Scripts Active Diclofenac Sodium DR (Diclofenac Sodium) 75 Mg Tabdr 75 Mg PO BID 10 Days Medrol Dosepak (Methylprednisolone) 4 Mg Dspk 4 Mg PO DIRECTED Per Pharmacist direction Reported Ibuprofen 800 Mg Tab 800 Mg PO Q6HR PRN Zanaflex (Tizanidine HCl) 4 Mg Cap 4 Mg PO Q8HR Oxycodone (Oxycodone HCl) 5 Mg Cap 5 Mg PO Q6H PRN Review of Systems Except as stated in HPI: all other systems reviewed are Neg Physical Exam Narrative GENERAL: This is a well-developed well-nourished male who does appear uncomfortable on initial examination. His vital signs have been reviewed. SKIN: Warm and dry. HEAD: Atraumatic. Normocephalic. EYES: Pupils equal and round. No scleral icterus. No injection or drainage. ENT: No nasal bleeding or discharge. Mucous membranes pink and moist. NECK: Trachea midline. No JVD. CARDIOVASCULAR: Regular rate and rhythm. No murmur appreciated. RESPIRATORY: No accessory muscle use. Clear to auscultation. Breath sounds equal bilaterally. GASTROINTESTINAL: Abdomen soft, non-tender, nondistended. Hepatic and splenic margins not palpable. MUSCULOSKELETAL: No obvious deformities. No clubbing. No cyanosis. No edema. There is no reproducible tenderness to palpation along the lumbar spine or paravertebral musculature. The patient has 5 out of 5 muscle strength hip flexion and extension bilaterally, leg flexion and extension bilaterally. He has 4 out of 5 muscle strength in right ankle dorsiflexion which he reports is his baseline. He has 5 out of 5 muscle strength on plantar flexion bilaterally. 2+ dorsalis pedis pulse bilaterally. NEUROLOGICAL: Awake and alert. No obvious cranial nerve deficits. Motor grossly within normal limits. Normal speech. Data Data Last Documented VS Vital Signs Date Time Temp Pulse Resp B/P (MAP) Pulse Ox O2 Delivery O2 Flow Rate FiO2 08/14/17 12:36 98.1 94 16 129/90 (103) 99 Orders Orders Hydromorphone Pf Inj (Dilaudid Pf Inj) (08/14/17 13:30) Ondansetron Inj (Zofran Inj) (08/14/17 13:30) Dexamethasone Inj (Decadron Inj) (08/14/17 13:30) Ed Discharge Order (08/14/17 13:20) [facility] Medical Decision Making Medical Screen Exam Complete: Yes Emergency Medical Condition: Yes Medical Record Reviewed: Yes Differential Diagnosis Herniated mucous pulposis, spinal stenosis, chronic lower back pain, discitis, osteomyelitis, epidural abscess, cauda equina syndrome Narrative Course I reviewed the patient's records. His physical examination findings are reassuring. He has 4-5 muscle strength in right ankle dorsiflexion which is his baseline. He is 5 out of 5 muscle strength otherwise. He has no symptoms to suggest cauda equina syndrome. He has an outpatient MRI of the lumbar spine with and without contrast ordered for this week and seems reasonable that the patient can obtain this as an outpatient. He has good follow-up. Plan is to treat him currently with a one-time dose of opiate analgesics. He reports that he has had some amount of success in the past with glucocorticoid treatment and therefore he will be given a dose of Decadron here and discharged with prescriptions for Medrol Dosepak as well as diclofenac. Diagnosis Primary Impression: Acute exacerbation of chronic low back pain Additional Instructions: Medication as prescribed. Avoid ibuprofen use when on diclofenac. Follow-up with Dr. Dean. Return for any emergent medical conditions. Med/Other Pt SpecificInfo: Prescription(s) given Scripts Diclofenac Sodium (Diclofenac Sodium DR) 75 Mg Tabdr 75 MG PO BID for 10 Days, #20 TAB 0 Refills Prov: Manuel Sun MD 08/14/17 Methylprednisolone Dosepak (Medrol Dosepak) 4 Mg Dspk 4 MG PO DIRECTED, #1 DSPK 0 Refills Per Pharmacist direction Prov: Manuel Sun MD 08/14/17 Disposition: 01 DISCHARGE HOME Condition: Stable Ellis Moya Aug 14, 2017 13:27
[2017-08-14] MEDS ORDERED: ONDANSETRON HCL 4 MG/2 ML VIAL IV PUSH ONE (13:30)
[2017-08-14] MEDS ORDERED: DEXAMETHASONE SOD PHOS 4 MG/ML VIAL IV PUSH ONE (13:30)
[2017-08-14] MEDS ORDERED: HYDROmorphone HCL PF 0.5 MG/0.5 ML SYRINGE IV PUSH ONE (13:30)
[2017-08-14 13:53] VITALS: RESP 18
== END 2017-08-14 13:53 | disposition home or self-care (01) ==
LOC: NEPC 12:27
DX: G89.29 Other chronic pain (principal); M54.5 Low back pain; M48.061 Spinal stenosis, lumbar region without neurogenic claudication; F41.9 Anxiety disorder, unspecified; G47.00 Insomnia, unspecified; Z87.442 Personal history of urinary calculi; Z91.5 Personal history of self-harm; Z72.0 Tobacco use; Z98.890 Other specified postprocedural states; Z88.5 Allergy status to narcotic agent
CPT/HCPCS: 96374; 96375; 99284; J1100; J1170; J2405